=== PATIENT | male | born 1960 | race American Indian/Alaskan Native ===

== ENCOUNTER 2017-02-18 09:37 | Outpatient (CLI) | payer OTHER ==
--- NOTE | 2017-02-18 11:11 | XRay Report ---
XRAY LEFT HIP THREE VIEWS: 02/18/17 09:37:00 CLINICAL: Pain. FINDINGS: No fracture or dislocation. Mild superior acetabular eburnation but otherwise normal hip joint. Similar changes in the right hip. Bilateral iliac enthesophytes. Bilateral SI joint sclerosis with no erosions identified. Normal soft tissues. IMPRESSION: Mild bilateral hip arthritis. Nonspecific enthesopathy involving the iliac wings..
== END 2017-02-18 09:38 | disposition home or self-care (01) ==
LOC: SPVIMAG 09:37
PROVIDERS: ATTEND Family Medicine Adult Medicine
DX: M16.0 Bilateral primary osteoarthritis of hip (principal); M76.9 Unspecified enthesopathy, lower limb, excluding foot; E11.9 Type 2 diabetes mellitus without complications

== ENCOUNTER 2017-09-19 08:19 | Outpatient (CLI) | payer OTHER ==
--- NOTE | 2017-09-19 18:28 | Cat Scan Report ---
FINAL REPORT EXAM: CT ABDOMEN PELVIS WO CON HISTORY: MALIGNANT NEOPLASM OF PROSTATE TECHNIQUE: CT abdomen and pelvis without contrast PRIORS: None. FINDINGS: No acute abnormality identified in the lung bases. No focal abnormality identified within the liver parenchyma. The spleen demonstrates normal size and attenuation. No pancreatic abnormalities seen. Kidneys demonstrate no evidence of hydronephrosis or nephrolithiasis. No ureteral calculus identified. The adrenal glands are unremarkable. Abdominal aorta is normal in caliber. No pathologically enlarged lymph nodes are identified. No signs of free fluid or free air No evidence of small bowel dilatation. The appendix is identified and is normal in size no adjacent inflammatory change seen. Urinary bladder is unremarkable. IMPRESSION: Negative. No acute abnormalities seen
--- NOTE | 2017-09-20 09:26 | Nuclear Medicine Report ---
BONE SCAN: History: Malignant neoplasm of prostate. Comparison: Bone scan dated 02/16/14. CT abdomen pelvis without contrast dated 09/19/17. Findings: There is normal renal, soft tissue and bony uptake. There is a solitary focus of increased radiotracer accumulation in the right anterior first rib near its articulation with the sternum/manubrium. This may represent degenerative or posttraumatic uptake. A solitary bony metastasis is thought less likely but cannot be entirely excluded. This is a new finding since 02/16/14. There is normal bony uptake in the remainder of the skeletal system. Focal activity at the left ankle has resolved since the previous exam. IMPRESSION: Questionable solitary focus of uptake in the right anterior first rib as outlined above. This may represent trauma, degenerative change or solitary bone lesion. I suspect a benign etiology. Consider correlation with radiographs or CT and PSA levels.
== END 2017-09-19 08:20 | disposition home or self-care (01) ==
LOC: NM 08:19
PROVIDERS: ATTEND Urology
DX: C61 Malignant neoplasm of prostate (principal); R97.21 Rising PSA following treatment for malignant neoplasm of prostate; E11.9 Type 2 diabetes mellitus without complications; K21.9 Gastro-esophageal reflux disease without esophagitis; Z79.899 Other long term (current) drug therapy
CPT/HCPCS: 74176; 78306; A9503

== ENCOUNTER 2017-10-15 10:36 | Outpatient (CLI) | payer OTHER ==
--- NOTE | 2017-10-15 11:00 | XRay Report ---
AP ABDOMEN: HISTORY: Malignant neoplasm of prostate. There is moderate stool throughout the colon and rectum. The abdominal gas pattern is unremarkable. No masses or organomegaly is identified and there is no gross evidence of free air or fluid. No significant soft tissue calcifications are noted. Previous ventral wall hernia repair changes are noted. IMPRESSION: Fecal retention.
== END 2017-10-15 10:37 | disposition home or self-care (01) ==
LOC: XRAY 10:36
PROVIDERS: ATTEND Urology
DX: C61 Malignant neoplasm of prostate (principal); K59.00 Constipation, unspecified; Z98.890 Other specified postprocedural states
CPT/HCPCS: 74018

== ENCOUNTER 2018-04-01 10:49 | Outpatient (CLI) | payer OTHER ==
[2018-04-01 11:35] LABS: Blood Urea Nitrogen 24 mg/dL (9-20)
[2018-04-01] MEDS ORDERED: NACL 0.9% 50 ML ONE (12:43)
--- NOTE | 2018-04-01 22:32 | Cat Scan Report ---
FINAL REPORT EXAM: CT ABDOMEN PELVIS W CON HISTORY: MALIGNANT NEOPLASM OF THE PROSTATE TECHNIQUE: Following IV administration of 100 cc of Omnipaque 300 axial helical imaging was performed through the abdomen and pelvis with sagittal and coronal reformatted images obtained. Additionally delayed axial helical imaging was performed through the abdomen and pelvis. Comparison: CT abdomen and pelvis dated September 19, 2017. FINDINGS: The lung bases are without infiltrate, pneumothorax or pleural fluid collection. The heart appears to be normal size. The liver, spleen, pancreas, kidneys and adrenal glands are normal in appearance. The gallbladder is moderately distended and unremarkable in appearance. The bowel is normal caliber. There is a moderate amount of stool throughout the colon. There is colonic diverticulosis without radiographic evidence of diverticulitis. The appendix is normal caliber. There is no evidence of pneumoperitoneum or free fluid. The abdominal aorta is normal caliber. There are enlarged lymph nodes in the iliac chain bilaterally. These are most consistent with the appearance of metastatic disease. The largest lymph node is in the right external iliac chain, measures approximately 2 centimeters in the maximal axial dimension, and demonstrates a central area of decreased density which may represent necrosis. It is unclear whether or not these lymph nodes have changed in size when compared to the previous study of September 19, 2017 since that study was performed without IV contrast. There are mildly prominent periaortic lymph nodes. The urinary bladder is mildly distended. There appears to be increased thickness of the urinary bladder wall. This is not significantly changed in the interval. The prostate gland is absent. The bony structures are notable for spondylitic change in the lumbar spine with multiple level degenerative facet change. There is no definite evidence of lytic or blastic change. There is evidence of previous anterior abdominal wall hernia repair. IMPRESSION: 1. Enlarged lymph nodes in the pelvis in the iliac chain most consistent with metastatic disease this patient with a history of prostate cancer. Whether not these have changed in size in the interval is unclear in the absence of IV contrast on the previous study.. 2. Increased thickness of the urinary bladder wall similar in appearance to the previous study. 3. Diverticulosis. 4. Previous anterior abdominal wall hernia repair.
== END 2018-04-01 10:50 | disposition home or self-care (01) ==
LOC: CT 10:49
PROVIDERS: ATTEND Radiology Radiation Oncology
DX: C61 Malignant neoplasm of prostate (principal); K57.90 Diverticulosis of intestine, part unspecified, without perforation or abscess without bleeding; K45.8 Other specified abdominal hernia without obstruction or gangrene
CPT/HCPCS: 36415; 74177; 82565; 84520; Q9967